=== PATIENT | female | born 1945 | race Caucasian/White ===

== ENCOUNTER 2022-03-06 07:40 | Emergency (ER) | payer OTHER ==
[2022-03-06 07:58] VITALS: BMI 25.3
[2022-03-06 10:05] LABS: BASO % 0.8 % (0-2.0); HEMATOCRIT 41.8 % (32.4-45.2); HEMOGLOBIN 14.1 GM/dL (10.7-15.3); LYMPH % 25.9 % (8-40); MCH 27.4 pg (25.7-33.7); MCHC 33.7 g/dl (32.0-36.0); MEAN CELL VOLUME 81.2 fl (80-96); MONO % 6.5 % (3.8-10.2); NEUT % 63.8 % (42.8-82.8); PLATELET COUNT 186 10^3/uL (134-434); RBC 5.15 M/mm3 (3.60-5.2); RDW 14.1 % (11.6-15.6); WHITE BLOOD COUNT 9.3 K/mm3 (4.0-10.0)
[2022-03-06 10:09] LABS: PH,URINE 5.5 (5.0-8.0); URINE APPEARANCE CLEAR; URINE BILIRUBIN NEGATIVE (NEGATIVE); URINE COLOR YELLOW; URINE GLUCOSE (UA) NEGATIVE (NEGATIVE); URINE KETONE NEGATIVE (NEGATIVE); URINE LEUK ESTERASE NEGATIVE (NEGATIVE); URINE NITRITE NEGATIVE (NEGATIVE); URINE PROTEIN NEGATIVE (NEGATIVE); URINE UROBILINOGEN 0.2 mg/dL (0.2-1.0)
[2022-03-06 10:19] LABS: ACTIVATED PTT 30.6 SECONDS (25.2-36.5); INR 1.08 (0.83-1.09); PROTHROMBIN TIME (PATIENT) 12.4 SEC (9.7-13.0)
[2022-03-06 10:22] LABS: ALBUMIN 4.4 g/dl (3.4-5.0); BLOOD UREA NITROGEN 10.4 mg/dL (7-18)
[2022-03-06 10:26] LABS: BILIRUBIN,TOTAL 0.5 mg/dL (0.2-1); TOT PROT 8.3 g/dl (6.4-8.2)
[2022-03-06] MEDS ORDERED: ACETAMINOPHEN 1000 MG/100 ML BAG IVPB ONE (11:43)
[2022-03-06] MEDS ORDERED: SODIUM CHLORIDE 0.9% 500 ML INFUS.BAG IV ONE (11:43)
[2022-03-06] MEDS ORDERED: METOCLOPRAMIDE HCL INJECTION 10 MG/2 ML VIAL IVPUSH ONE (11:43)
[2022-03-06] MEDS ORDERED: METOCLOPRAMIDE HCL INJECTION 10 MG/2 ML VIAL ONE (11:52)
[2022-03-06] MEDS ORDERED: ACETAMINOPHEN INJECTION 100 ML IVPB ONE (11:52)
[2022-03-06 15:38] VITALS: BP 153/78; PULSE 77; RESP 20; TEMP 97.4
== END 2022-03-06 15:58 | disposition home or self-care (01) ==
LOC: JER 07:40
PROC: 3E0333Z Introduction of Anti-inflammatory into Peripheral Vein, Percutaneous Approach (ICD-10-PCS; principal; 2022-03-06)
PROC: 3E033GC Introduction of Other Therapeutic Substance into Peripheral Vein, Percutaneous Approach (ICD-10-PCS; 2022-03-06)
DX: R51.9 Headache, unspecified (principal)
CPT/HCPCS: 36415; 70450-TC; 71046-TC-FY; 80053; 81003; 84484; 85025; 85610; 85730; 87086; 93005; 93010; 96374; 96375; 99285-25

== ENCOUNTER 2023-12-03 04:17 | Day surgery (SDC) | payer OTHER ==
[2023-11-27 14:54] VITALS: BMI 25.1
[~2023-12-03 04:17] MED LIST: ACETAMINOPHEN 325 MG TABLET (FP) PO PRN
[2023-12-03 06:52] VITALS: RESP 20
[2023-12-03] MEDS ORDERED: KETOROLAC TROMETHAMINE 0.5% EYE DROP 1 DROP DROPS ONE (06:55)
[2023-12-03] MEDS ORDERED: PHENYLEPHRINE 2.5% OPTHALMIC DROP 2ML BOTTLE ONE (06:55)
[2023-12-03] MEDS ORDERED: CYCLOPENTOLATE HCL 1% OPHTH SOLN 2 ML BOTTLE ONE (06:55)
[2023-12-03] MEDS ORDERED: TROPICAMIDE 1% OPHTH SOLN 15 ML BOTTLE ONE (06:56)
[2023-12-03] MEDS ORDERED: OFLOXACIN 0.3% OPHTHALMIC SOLUTION 5 ML BOTTLE ONE (06:56)
[2023-12-03] MEDS: KETOROLAC TROMETHAMINE 0.5% EYE DROP 1 DROP DROPS OP SCH (07:04)
[2023-12-03] MEDS: TROPICAMIDE 1% OPHTH SOLN 15 ML BOTTLE OP SCH (07:04)
[2023-12-03] MEDS: PHENYLEPHRINE 2.5% OPHTH SOLN 15 ML BOTTLE OP SCH (07:04)
[2023-12-03] MEDS: OFLOXACIN 0.3% OPHTHALMIC SOLUTION 5 ML BOTTLE OP SCH (07:04)
[2023-12-03] MEDS: CYCLOPENTOLATE HCL 1% OPHTH SOLN 2 ML BOTTLE OP SCH (07:04)
[2023-12-03] MEDS ORDERED: EPINEPHrine/PF 1 MG/1 ML (1:1,000) AMPULE ONE (07:27)
[2023-12-03] MEDS ORDERED: LIDOCAINE HCL/PF 1% SDV 5ML VIAL ONE (07:28)
[2023-12-03] MEDS ORDERED: VANCOMYCIN 500 MG VIAL (RESTRICTED TO ID ONLY) ONE (07:29)
[2023-12-03] MEDS ORDERED: ACETYLCHOLINE 1:100 INTRA-OCUL 20 MG/2 ML KIT ONE (07:29)
[2023-12-03] MEDS ORDERED: POVIDONE-IODINE 5% OPHTHALMIC PREP 30 ML SOLUTION ONE (07:30)
[2023-12-03] MEDS ORDERED: TRYPAN BLUE 0.5 ML DISP.SYRIN ONE (07:30)
[2023-12-03] MEDS ORDERED: TETRACAINE 0.5% OPHTH SOLN 2 ML BOTTLE ONE (07:46)
[2023-12-03] MEDS ORDERED: MIDAZOLAM HCL 2 MG/2 ML SINGLE DOSE VIAL ONE (08:05)
[2023-12-03] MEDS: TETRACAINE 0.5% OPHTH SOLN 2 ML BOTTLE OS ONE (08:05)
[2023-12-03] MEDS: POVIDONE-IODINE 5% OPHTHALMIC PREP 30 ML SOLUTION OS ONE (08:06)
[2023-12-03] MEDS: LIDOCAINE HCL 1% PRESERVATIVE FREE - 30ML VIAL IO ONE ×2 (08:14)
[2023-12-03] MEDS: BSS (NA/CA/MG/K) BALANCED SALT SOLUTION OPHTH SOLN 15 ML BOTTLE IO ONE ×2 (08:15)
[2023-12-03] MEDS: CHONDROITIN SU A/HYALUR SOD 1 KIT IO ONE ×2 (08:16)
[2023-12-03] MEDS: EPINEPHrine/PF 1 MG/1 ML (1:1,000) AMPULE IO ONE ×2 (08:22)
[2023-12-03] MEDS: VANCOMYCIN 500 MG VIAL (RESTRICTED TO ID ONLY) IVPB ONE ×2 (08:34)
[2023-12-03 09:52] VITALS: BP 185/75; PULSE 53; TEMP 98.7
== END 2023-12-03 09:52 | disposition home or self-care (01) ==
LOC: JASU-SURG 04:17
PROVIDERS: ATTEND Ophthalmology
PROC: 08RK3JZ Replacement of Left Lens with Synthetic Substitute, Percutaneous Approach (ICD-10-PCS; principal; 2023-12-03 08:00)
DX: H26.9 Unspecified cataract (principal)
CPT/HCPCS: V2632

== ENCOUNTER 2023-12-17 04:18 | Day surgery (SDC) | payer OTHER ==
[2023-12-12 15:39] VITALS: BMI 25.1
[2023-12-17] MEDS ORDERED: TETRACAINE 0.5% OPHTH SOLN 2 ML BOTTLE ONE (07:37)
[2023-12-17] MEDS ORDERED: EPINEPHrine/PF 1 MG/1 ML (1:1,000) AMPULE ONE (07:37)
[2023-12-17] MEDS ORDERED: LIDOCAINE HCL/PF 1% SDV 5ML VIAL ONE (07:37)
[2023-12-17] MEDS ORDERED: POVIDONE-IODINE 5% OPHTHALMIC PREP 30 ML SOLUTION ONE (07:38)
[2023-12-17] MEDS ORDERED: BSS (NA/CA/MG/K) BALANCED SALT SOLUTION OPHTH SOLN 15 ML BOTTLE ONE (07:38)
[2023-12-17] MEDS ORDERED: PHENYLEPHRINE 2.5% OPTHALMIC DROP 2ML BOTTLE ONE (07:46)
[2023-12-17] MEDS ORDERED: CYCLOPENTOLATE HCL 1% OPHTH SOLN 2 ML BOTTLE ONE (07:47)
[2023-12-17] MEDS ORDERED: KETOROLAC TROMETHAMINE 0.5% EYE DROP 1 DROP DROPS ONE (07:47)
[2023-12-17] MEDS ORDERED: TROPICAMIDE 1% OPHTH SOLN 15 ML BOTTLE ONE (07:47)
[2023-12-17] MEDS ORDERED: OFLOXACIN 0.3% OPHTHALMIC SOLUTION 5 ML BOTTLE ONE (07:47)
[2023-12-17 07:58] VITALS: PULSE 55; RESP 20; TEMP 97.3
[2023-12-17] MEDS: OFLOXACIN 0.3% OPHTHALMIC SOLUTION 5 ML BOTTLE OP SCH (08:00)
[2023-12-17] MEDS: CYCLOPENTOLATE HCL 1% OPHTH SOLN 2 ML BOTTLE OP SCH (08:00)
[2023-12-17] MEDS: TROPICAMIDE 1% OPHTH SOLN 15 ML BOTTLE OP SCH (08:00)
[2023-12-17] MEDS: PHENYLEPHRINE 2.5% OPHTH SOLN 15 ML BOTTLE OP SCH (08:00)
[2023-12-17] MEDS: KETOROLAC TROMETHAMINE 0.5% EYE DROP 1 DROP DROPS OP SCH (08:00)
[2023-12-17] MEDS ORDERED: MIDAZOLAM HCL 2 MG/2 ML SINGLE DOSE VIAL ONE (09:12)
[2023-12-17] MEDS ORDERED: ONDANSETRON 4 MG/2 ML VIAL ONE (09:12)
[2023-12-17] MEDS: TETRACAINE 0.5% OPHTH SOLN 2 ML BOTTLE OD ONE (10:04)
[2023-12-17] MEDS: POVIDONE-IODINE 5% OPHTHALMIC PREP 30 ML SOLUTION OD ONE (10:06)
[2023-12-17] MEDS: LIDOCAINE HCL 1% PRESERVATIVE FREE - 30ML VIAL IO ONE (10:12)
[2023-12-17] MEDS: BSS (NA/CA/MG/K) BALANCED SALT SOLUTION OPHTH SOLN 15 ML BOTTLE IO ONE (10:13)
[2023-12-17] MEDS: CHONDROITIN SU A/HYALUR SOD 1 KIT IO ONE (10:14)
[2023-12-17] MEDS: EPINEPHrine/PF 1 MG/1 ML (1:1,000) AMPULE IO ONE ×2 (10:23)
[2023-12-17 12:21] VITALS: BP 144/68
== END 2023-12-17 11:33 | disposition home or self-care (01) ==
LOC: JASU-SURG 04:18
PROVIDERS: ATTEND Ophthalmology
PROC: 08RJ3JZ Replacement of Right Lens with Synthetic Substitute, Percutaneous Approach (ICD-10-PCS; principal; 2023-12-17 10:00)
DX: H26.9 Unspecified cataract (principal)
CPT/HCPCS: V2632